=== PATIENT | male | born 1990 | race Caucasian/White ===

== ENCOUNTER 2018-11-12 16:41 | Emergency (ER) | payer SELFPAY ==
[~2018-11-12] VITALS: Ht 165.1 cm; Wt 71.9 kg
[~2018-11-12 16:41] MED LIST: CHLO25CA9 PO; IBUP-1542 PO; MULTI PO; ONDA4TAB14 PO
[2018-11-12 16:52] VITALS: Ht 165.1 cm; Wt 71.9 kg
[2018-11-12] MEDS ORDERED: morphine 4 MG/ML VIAL IV STA (18:14)
[2018-11-12] MEDS ORDERED: SOD CHLORIDE 0.9% 1,000 ML IV STA (18:14)
[2018-11-12] MEDS ORDERED: ONDANSETRON 4 MG INJ IV STA (18:14)
--- NOTE | 2018-11-12 18:16 | ERD ---
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 no surg hx HPI This is a 28-year-old male patient presents emergency room with complaint of right lower quadrant pain with diarrhea [place] and vomiting times today. Denies fevers, denies abdominal trauma, denies nausea, no dysuria. No chronic medical conditions. No sick contacts. ROS All systems reviewed and are negative except as per history of present illness. Medications Home Meds Active Scripts Ibuprofen* (Motrin*) 600 Mg Tab, 600 MG PO Q6, #30 TAB Prov:CIRA CUNNINGHAM NP 11/12/18 Multivitamins* (Theragran*) 1 Tab Tab, 1 TAB PO DAILY for 30 Days, #30 TAB Prov:CIRA CUNNINGHAM NP 11/12/18 Chlordiazepoxide* (Chlordiazepoxide*) 25 Mg Capsule, 25 MG PO Q6 for 5 Days, #20 CAP Prov:CIRA CUNNINGHAM NP 11/12/18 Ondansetron (Ondansetron Odt) 4 Mg Tab.rapdis, 4 MG PO Q6H PRN for NAUSEA AND/OR VOMITING, #10 TAB Prov:CIRA CUNNINGHAM NP 11/12/18 Ibuprofen* (Motrin*) 600 Mg Tab, 600 MG PO Q6H PRN for PAIN AND OR ELEVATED TEMP, #30 TAB Prov:KELLE MARTINEZ MD 06/01/18 Allergies Allergies: Coded Allergies: No Known Allergy (Unverified , 11/12/18) PMhx/Soc Medical and Surgical Hx: pt denies Medical Hx, pt denies Surgical Hx Hx Alcohol Use: Yes Hx Substance Use: No Hx Tobacco Use: Yes Smoking Status: Current every day smoker FmHx Family History: No diabetes, No coronary disease, No other Physical Exam Vitals Vital Signs Date Temp Pulse Resp B/P (MAP) Pulse Ox O2 O2 Flow FiO2 Time Delivery Rate 11/12/18 97.8 79 20 111/81 99 Room Air 23:09 (91) 11/12/18 97.6 73 20 122/73 99 Room Air 20:07 (89) 11/12/18 98.7 88 16 112/78 97 16:52 (89) Physical Exam Const: No acute distress Head: Atraumatic Eyes: Normal Conjunctiva ENT: Normal External Ears, Nose and Mouth. Neck: Full range of motion. No meningismus. No lymphadenopathy Resp: Clear to auscultation bilaterally Cardio: Regular rate and rhythm, no murmurs Abd: Soft, + rebound tenderness to right lower quadrant, + obturator sign, n on distended. Normal bowel sounds Skin: No petechiae or rashes Back: No midline or flank tenderness, no CVT Ext: No cyanosis, or edema Neur: Awake and alert, her speech steady gait Psych: Normal Mood and Affect Result Diagram: 11/12/18182911/12/181829 Results 24 hrs Laboratory Tests Test 11/12/18 18:30 White Blood Count 4.2 10^3/ul Red Blood Count 5.17 10^6/ul Hemoglobin 15.7 g/dl Hematocrit 46.7 % Mean Corpuscular Volume 90.3 fl Mean Corpuscular Hemoglobin 30.4 pg Mean Corpuscular Hemoglobin Concent 33.6 g/dl Red Cell Distribution Width 11.9 % Platelet Count 255 10^3/UL Mean Platelet Volume 8.7 fl Immature Granulocytes % 0.200 % Neutrophils % 56.4 % Lymphocytes % 26.5 % Monocytes % 11.3 % Eosinophils % 3.4 % Basophils % 2.2 % Nucleated Red Blood Cells % 0.0 /100WBC Immature Granulocytes # 0.010 10^3/ul Neutrophils # 2.3 10^3/ul Lymphocytes # 1.1 10^3/ul Monocytes # 0.5 10^3/ul Eosinophils # 0.1 10^3/ul Basophils # 0.1 10^3/ul Nucleated Red Blood Cells # 0.0 10^3/ul Urine Color YELLOW Urine Clarity CLEAR Urine pH 6.0 Urine Specific [place] 1.009 Urine Ketones NEGATIVE mg/dL Urine Nitrite NEGATIVE mg/dL Urine Bilirubin NEGATIVE mg/dL Urine Urobilinogen NEGATIVE mg/dL Urine Leukocyte Esterase NEGATIVE Maurizio/ul Urine Microscopic RBC 0 /HPF Urine Microscopic WBC 3 /HPF Urine Hemoglobin 1+ mg/dL Urine Glucose NEGATIVE mg/dL Urine Total Protein NEGATIVE mg/dl Sodium Level 144 mmol/L Potassium Level 4.4 mmol/L Chloride Level 104 mmol/L Carbon Dioxide Level 29 mmol/L Anion Gap 11 Blood Urea Nitrogen 8 mg/dl Creatinine 0.98 mg/dl Est Glomerular Filtrat Rate mL/min > 60 mL/min Glucose Level 88 mg/dl Calcium Level 9.5 mg/dl Total Bilirubin 0.8 mg/dl Direct Bilirubin 0.00 mg/dl Indirect Bilirubin 0.8 mg/dl Aspartate Amino Transf (AST/SGOT) 45 IU/L Alanine Aminotransferase (ALT/SGPT) 36 IU/L Alkaline Phosphatase 63 IU/L Total Protein 8.4 g/dl Albumin 4.6 g/dl Globulin 3.80 g/dl Albumin/Globulin Ratio 1.21 Lipase 116 U/L Current Medications Medications Dose Sig/Meagan Start Time Status Last (Trade) Ordered Route PRN Stop Time Admin Dose Reason Admin Sodium 1,000 ml @ Q1H STAT 11/12/18 DC 11/12/18 Chloride 1,000 mls/hr IV 18:14 18:27 11/12/18 19:13 Morphine 4 mg ONCE STAT 11/12/18 DC 11/12/18 Sulfate IV 18:14 18:26 (morphine) 11/12/18 18:16 Ondansetron 4 mg ONCE STAT 11/12/18 DC 11/12/18 HCl (Zofran IV 18:14 18:26 Inj) 11/12/18 18:16 IV Flush 10 ml STK-MED 11/12/18 DC (NS 10 ml) ONCE .ROUTE 19:52 11/12/18 19:53 Sodium 100 ml @ ud STK-MED 11/12/18 DC Chloride ONCE .ROUTE 19:52 11/12/18 19:53 Iohexol 150 ml STK-MED 11/12/18 DC (Omnipaque ONCE .ROUTE 19:52 300mg/ ml) 11/12/18 19:53 Lorazepam 1 mg ONCE ONCE 11/12/18 DC 11/12/18 (Ativan) IV 20:30 20:20 11/12/18 20:31 50 mg ONCE ONCE 11/13/18 DC 11/12/18 Chlordiazepox PO 00:00 23:46 dasha 11/13/18 00:01 (Librium) Procedures/MDM PROCEDURES/MDM DIAGNOSTIC IMAGING: Read by radiologist. IMPRESSION: 1. No acute inflammatory process, mass, or adenopathy. 2. Normal appendix and terminal ileum. 3. Fatty liver LAB INTERPRETATION: No leukocytosis no electrolyte disturbance, normal kidney function, no transaminitis, no pancreatitis no UTI -Medications: Normal saline,Morphine, Zofran, Ativan, Librium Patient tolerated medication well with no adverse reactions. Patient reported improvement in pain. MDM: Is a 28-year-old male patient presents emergency room with complaint of right lower quadrant pain that was very suspicious for acute appendicitis as he had rebound pain and vomiting today. Patient was treated in the normal course of a work-up for appendicitis including IV hydration, IV pain medicine and antinausea medicine, CAT scan for evaluation of acute appendicitis. Lab work and CT scan negative for appendicitis or other indication for intra-abdominal abscess, diverticulitis, infection, pancreatitis, other life-threatening etiology. Upon reevaluation patient was noted to be tremulous. Patient states he has been dr inking beer heavily for the last 5 days in a row with last alcoholic drink approximately 5 hours CRAPS [employer]ER. Patient states he has a history of alcoholism and had not been drinking for quite some time until 5 days ago. Patient denies having any history of alcohol withdrawal seizures. Patient states he lives with his sister. Patient states he has a primary care doctor and resources for substance abuse. Patient was treated with Ativan which subsided his tremors for a while and generally improved his sense of well-being however at time of discharge patient stated he was feeling tremulous again and was given first dose of Librium. Patient was instructed on use of Librium and need for close follow- up with primary care doctor and abstaining from alcohol. Patient states after his dose of Librium here in the emergency room he felt much better and was able to ambulate out of the ER to awaiting sister with steady gait, NAD. Patient's vital signs remained stable throughout ED course. Low suspicion for acute alcohol withdrawal syndrome, encephalopathy, cirrhosis. DISPOSITION and PLAN: RX: Zofran, Librium The patient has been discharge home to follow-up with community physician. Departure Diagnosis: Primary Impression: Abdominal pain Abdominal location: generalized Qualified Codes: R10.84 - Generalized abdominal pain Additional Impression: Alcohol withdrawal Complication of substance-induced condition: uncomplicated Qualified Codes: F10.230 - Alcohol dependence with withdrawal, uncomplicated Condition: Stable CIRA CUNNINGHAM NP Nov 12, 2018 18:16
[2018-11-12] MEDS ORDERED: SOD CHLORIDE 0.9% 100 ML ONE (19:52)
[2018-11-12] MEDS ORDERED: IOHEXOL 300MG/ML 150 ML BTL ONE (19:52)
[2018-11-12] MEDS ORDERED: LORAZEPAM 2 MG INJ IV ONE (20:30)
[2018-11-12 23:09] VITALS: BP 111/81; PULSE 79; RESP 20
[2018-11-13] MEDS ORDERED: CHLORDIAZEPOXIDE 25 MG CAP PO ONE
== END 2018-11-13 00:11 | disposition home or self-care (01) ==
LOC: FTE 16:41
DX: F10.230 Alcohol dependence with withdrawal, uncomplicated (principal); R10.84 Generalized abdominal pain; F17.210 Nicotine dependence, cigarettes, uncomplicated
CPT/HCPCS: 36415; 74177; 80053; 81001; 83690; 85025; 96361; 96374; 96375; 99285; J2060; J2270; J2405; J7030; Q9967